=== PATIENT | female | born 1960 | race Caucasian/White ===

== ENCOUNTER 2020-02-05 16:41 | Outpatient (CLI) | payer OTHER, SELFPAY ==
--- NOTE | ~2020-02-05 | XR_ITS ---
XR facial bones min 3V 02/05/2020 17:14 Indication: Localized swelling. Mass. And lateral to the head. Fall 2 days ago. Procedure: 5 views of the facial bones Comparison: No prior studies for comparison. Findings: No acute fracture or traumatic malalignment. Orbits intact. No significant abnormality of t he paranasal sinuses. No significant opacification. Mastoids. Pneumatized. Mandible appears intact. Impression: 1: No acute abnormality of the facial bones identified. Reviewed, dictated and finalized at location A. Impression: 1: No acute abnormality of the facial bones identified.
== END 2020-02-05 16:42 | disposition home or self-care (01) ==
LOC: ANHIMG 16:51
PROVIDERS: PCP Physician Assistant Medical; Visit Provider Nurse Practitioner Family
DX: R22.0 Localized swelling, mass and lump, head (principal); S00.83XA Contusion of other part of head, initial encounter; W19.XXXA Unspecified fall, initial encounter
CPT/HCPCS: 70150